=== PATIENT | male | born 1980 | race Caucasian/White ===

== ENCOUNTER 2018-01-22 15:29 | Inpatient (IN) | payer OTHER ==
[~2018-01-22] VITALS: Ht 188 cm; Wt 214.4 kg
[2018-01-22 15:42] VITALS: Ht 188 cm; Wt 214.4 kg
[2018-01-22 19:21] LABS: BASOPHIL % 0.2 % (0-2); PLATELET COUNT 253 x10^3mcL (130-400); RED CELL DISTRIBUTION WIDTH 15.7 % (11.5-14.5)
[2018-01-22 19:23] LABS: CALCIUM 8.5 mg/dL (8.5-10.1); CARBON DIOXIDE 28.6 mmol/L (21-32); CHLORIDE SERUM 104 mmol/L (98-107); CREATININE SERUM 1.2 mg/dL (0.7-1.3); GFR1 > 60 mL/min; GLUCOSE SERUM 128 mg/dL (74-106); POTASSIUM SERUM 3.5 mmol/L (3.5-5.1); SODIUM SERUM 136 mmol/L (136-145)
[2018-01-22 19:28] LABS: ALBUMIN 3.1 g/dL (3.4-5.0); ALKALINE PHOSPHATASE 72 U/L (46-116); ALT/SGPT 27 U/L (16-63); AST/SGOT 14 U/L (15-37); BILIRUBIN TOTAL 0.78 mg/dL (0.20-1.00); TOTAL PROTEIN, SERUM 7.8 g/dL (6.4-8.2)
[2018-01-22 22:01] VITALS: BP 115/76
[2018-01-23 05:33] VITALS: BP 160/87
[2018-01-23 06:04] VITALS: BP 130/85
[2018-01-23 07:10] LABS: ALKALINE PHOSPHATASE 68 U/L (46-116); ALT/SGPT 37 U/L (16-63); AST/SGOT 24 U/L (15-37); BILIRUBIN TOTAL 0.74 mg/dL (0.20-1.00); CALCIUM 8.3 mg/dL (8.5-10.1); CARBON DIOXIDE 25.4 mmol/L (21-32); CHLORIDE SERUM 106 mmol/L (98-107); CREATININE SERUM 0.8 mg/dL (0.7-1.3); GFR1 > 60 mL/min; GLUCOSE SERUM 132 mg/dL (74-106); POTASSIUM SERUM 3.9 mmol/L (3.5-5.1); SODIUM SERUM 139 mmol/L (136-145); TOTAL PROTEIN, SERUM 7.2 g/dL (6.4-8.2)
[2018-01-23 07:23] LABS: ALBUMIN 2.8 g/dL (3.4-5.0)
[2018-01-23 09:41] VITALS: BP 135/79
[2018-01-23 10:47] LABS: BASOPHIL % 0.4 % (0-2); PLATELET COUNT 228 x10^3mcL (130-400)
[2018-01-23 10:50] LABS: RED CELL DISTRIBUTION WIDTH 15.8 % (11.5-14.5)
[2018-01-23 17:23] VITALS: BP 131/78
[2018-01-23 21:39] VITALS: BP 112/67
[2018-01-24 06:06] VITALS: BP 131/62
[2018-01-24 06:09] LABS: BASOPHIL % 0.4 % (0-2); PLATELET COUNT 264 x10^3mcL (130-400)
[2018-01-24 06:36] LABS: CALCIUM 8.5 mg/dL (8.5-10.1); CARBON DIOXIDE 24.8 mmol/L (21-32); CHLORIDE SERUM 105 mmol/L (98-107); CREATININE SERUM 0.8 mg/dL (0.7-1.3); GFR1 > 60 mL/min; GLUCOSE SERUM 141 mg/dL (74-106); POTASSIUM SERUM 3.8 mmol/L (3.5-5.1); SODIUM SERUM 139 mmol/L (136-145)
[2018-01-24 06:44] LABS: RED CELL DISTRIBUTION WIDTH 15.4 % (11.5-14.5)
[2018-01-24 09:56] VITALS: BP 137/74
== END 2018-01-24 16:40 | disposition left against medical advice (07) | DRG 383 ==
LOC: ED 15:29 → MU 21:17 → EDBEDREQ 21:17 → MU 21:49
PROVIDERS: Emergency Medicine; Internal Medicine Pulmonary Disease
DX: L03.115 Cellulitis of right lower limb (principal); E66.01 Morbid (severe) obesity due to excess calories; Z53.21 Procedure and treatment not carried out due to patient leaving prior to being seen by health care provider; D72.829 Elevated white blood cell count, unspecified
CPT/HCPCS: J0690; J1650; J3490; J7030; Q0092